=== PATIENT | female | born 1970 | race Caucasian/White ===

== ENCOUNTER 2016-10-27 02:22 | Emergency (ER) | payer MEDICAID, OTHER ==
[2016-10-27] MEDS ORDERED: OPTIRAY 350 100 ML VIAL HMH IV ONE (02:23)
[2016-10-27] MEDS ORDERED: METOCLOPRAMIDE 10 MG/2 ML VIAL ONE (04:02)
[2016-10-27] MEDS ORDERED: ONDANSETRON 4 MG VIAL ONE (04:02)
[2016-10-27] MEDS ORDERED: KETOROLAC 30 MG/ML VIAL ONE (04:03)
[2016-10-27] MEDS ORDERED: SODIUM CHLORIDE 0.9% 1,000 ML ONE (04:03)
[2016-10-27] MEDS ORDERED: DIPHENHYDRAMINE 50 MG/ML VIAL ONE (04:03)
[2016-10-27] MEDS ORDERED: HALOPERIDOL 5 MG/ML VIAL ONE (05:55)
== END 2016-10-27 06:17 | disposition home or self-care (01) ==
LOC: ER 02:22
CPT/HCPCS: 36415; 74177; 80053; 81001; 83690; 84703; 85025; 96361; 96374; 96375